=== PATIENT | male | born 1995 | race Caucasian/White ===

== ENCOUNTER 2018-08-20 08:06 | Day surgery (SDC) | payer OTHER ==
[2018-08-20] MEDS ORDERED: SCOPOLAMINE HYDROBROMIDE 1.5 MG PATCH.TD72 TD PRN (09:55)
[2018-08-20] MEDS ORDERED: ONDANSETRON HCL INJ/PF 4 MG/2 ML SDV ONE (10:00)
[2018-08-20] MEDS ORDERED: MIDAZOLAM 2 MG/2 ML INJ ONE (10:01)
[2018-08-20] MEDS ORDERED: PROPOFOL INJ 200 MG/20 ML VIAL IV ONE (10:01)
[2018-08-20] MEDS ORDERED: DEXAMETHASONE SOD PHOS INJ 10 MG/1 ML VIAL ONE (10:01)
[2018-08-20] MEDS ORDERED: FENTANYL CITRATE INJ/PF 100 MCG/2 ML AMPUL ONE (10:01)
[2018-08-20] MEDS ORDERED: ROCURONIUM BROMIDE INJ 50 MG/5 ML VIAL IV ONE (10:20)
[2018-08-20] MEDS ORDERED: CEFTRIAXONE 2 GM/D5W RTU 2 GM/50 ML RTUPB IV ONE (10:28)
[2018-08-20] MEDS: BUPIVACAINE HCL 0.5%/EPI 1:200000 INJ 1.8 ML CARTRIDGE ONE ×2 (10:33→10:37)
[2018-08-20] MEDS: OXYMETAZOLINE HCL 0.05% NASAL SPRAY 15 ML BOTTLE ONE ×2 (10:37→10:52)
[2018-08-20] MEDS: MINERAL OIL (STERILE) 10 ML VIAL ONE ×2 (10:37→10:51)
[2018-08-20] MEDS: TOBRAMYCIN SULFATE/DEXAMETH OPH OINTMENT 3.5 GM ONE ×2 (10:37→10:50)
[2018-08-20] MEDS: BACITRACIN ZINC OINTMENT 15 GM ONE ×3 (10:37→10:51)
[2018-08-20] MEDS: BALANCED SALT IRRIG SOLN COMB2 15 ML BOTTLE ONE ×2 (10:37→10:51)
[2018-08-20] MEDS ORDERED: PROMETHAZINE HCL INJ 25 MG/1 ML VIAL ONE (15:31)
[2018-08-20] MEDS ORDERED: NORMAL SALINE INJ/PF 0.9% 10 ML SDV ONE (15:32)
--- NOTE | 2018-08-21 07:15 | SURGICARE OPERATIVE REPORT E ---
[facility] Operative Report NAME: NORM MIGUEL AGE: 22Y DATE OF SURGERY: 08/20/2018 ROOM: PREOPERATIVE DIAGNOSES: 1. Nasal deformities acquired. 2. Nasal septal deviation acquired. 3. Chronic nasal dyspnea. 4. Bilateral inferior turbinate hypertrophy. POSTOPERATIVE DIAGNOSES: 1. Nasal deformities acquired. 2. Nasal septal deviation acquired. 3. Chronic nasal dyspnea. 4. Bilateral inferior turbinate hypertrophy. OPERATIONS PERFORMED: 1. Endonasal/closed reconstructive septorhinoplasty with work addressing the bony pyramid and lower cartilages with tip elevation and stabilization. 2. Bilateral inferior turbinate hypertrophy via a submucous resection technique. SURGEON: GLORIA MORRISSEY D.O. ANESTHETIC: General endotracheal tube. ANESTHESIA STAFF: Neena FREEMAN ESTIMATED BLOOD LOSS: 75 mL. FLUIDS: 1900 mL. URINE OUTPUT: 700 mL. COMPLICATIONS: None. DRAINS: None. SPONGE COUNT: Verified. NEEDLE COUNT: Verified. MATERIALS FORWARDED SPECIMEN: None. FINDINGS: 1. Caudal septum with right bowing deformity/right convexity and caudal septal margin with displacement into the left nasal vestibule along with the medial crura and medial crural foot plate on the left. 2. Nasal dorsal bony irregularities. 3. Pinched nasal valve and nasal valve collapse bilateral. 4. Bilateral inferior turbinate hypertrophy, left greater than right. 5. Large right maxillary crest spur and septal spur. 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 The patient had been referred for and he complained of a longstanding history of chronic nasal dyspnea over the years. The patient reports history of nasal trauma. The patient has desired to undergo nasal surgery to improve his functional nasal airflow. The patient denies allergy symptoms or sinus disease difficulty. The patient reports no change in nasal airflow with nasal spray/steroid use. After extensive discussion with the patient, recommendation and plan was made to proceed with a reconstructive septorhinoplasty and bilateral inferior turbinate reduction surgery. The procedures and all of their risks and complications were all discussed in detail with the patient. He voiced an understanding of the described surgical plan, agreed to proceed, and consent was obtained. PROCEDURE: The patient was taken to the main operating room and was placed on the operating room table in the supine position. Appropriate monitors were placed. Using mask and IV access, general anesthesia was induced. The patient then underwent a nasal examination with injection of local anesthetic with epinephrine. The patient had 2 Afrin-soaked neuro patties placed per nasal passage. The patient was then prepped and draped in the usual fashion for nasal surgery. There was a left hemitransfixion incision performed followed by elevation of the mucoperichondrial and mucoperiosteal flaps. There was a rent that occurred with elevation of the right mucosal flap due to the extensive right maxillary crest spur and septal spur. At this point, the bony cartilaginous junction was identified and divided with the most deviated portions of septal cartilage and bone removed. There was cartilage also harvested leaving a greater than 1.5 x 1.5 cm cartilaginous L-strut. At this point, the turbinate bipolar wand was used to make 2 passes in each inferior turbinate. The anterior portion of each turbinate was entered with a pair of Fernando scissors followed by elevation of tissue in a submucosal plane with a [place] elevator. A Bobo elevator was next used to outfracture each inferior turbinate. With use of the turbinate microdebrider system at a setting of 1500 RPM, submucous resection was performed on each side. The redundant mucosa was trimmed. Excess turbinate bone on the left was removed without difficulty. At this point, the mucosal margins were reapproximated with Chromic suture. At this point, the rhinoplasty portion of the case was addressed in the following manner. There was a precise pocket created between the medial crural footplates to reposition the caudal septal margin into. There were bilateral modified marginal incisions performed. Next, Fernando scissors were used to create precise pockets for the bilateral extended alar grafts. Dissection was carried up over the nasal dorsum in a subperiosteal plane. There was next dorsal rasp work performed to address the dorsal bony deformities. At this point, septal cartilage was used and fashioned into extended alar fat grafts, left greater than right. These were placed into the precise pockets and were then fixed in place with [id number] 5-0 Prolene and Telfa holsters to protect the nasal lining and skin. Once complete, the nose was thoroughly irrigated and suctioned and there was adequate hemostasis noted. At this point, the #15 blade scalpel was used to create relaxing incisions at the left septal cartilage to release the bowing deformity. Next, 5-0 Prolene suture was used to perform a septal mattress straightening suture. Once complete, the caudal septum was fixed to the midline at the anterior nasal spine with 5-0 Prolene suture. The height of the caudal septum in this location was also trimmed prior to fixation at the anterior nasal spine. The remaining cartilage was placed back between the mucosal flaps and banked. A 5-0 Chromic suture was used to reapproximate the right mucosal flap rent. There was soft tissue and morselized cartilage that was placed at the nasal dorsum around the upper lateral cartilages/rhinion area for contour and to assist with overall healing. At this point, all incisions were reapproximated with 5-0 Chromic suture. The 5-0 Chromic suture was also utilized to perform a septal mattress whipstitch. At this point, 1 Merocel nasal pack was placed per nasal passage and these were secured at the caudal aspect with 4-0 Prolene suture. FloSeal was also placed into each nasal passage. At this point, the nose was cleaned and dried followed by placement of Mastisol and Steri-Strips. The patient was then returned to the anesthesia staff and was allowed to emerge from general anesthesia. The patient was extubated in the main operating room and was then transported to the post-anesthesia recovery unit in stable condition. There were no complications. DICTATING PHYSICIAN: GLORIA MORRISSEY D.O. [id number] PHY#: [id number] ID: [id number] JOB#: [id number] ACCT: [id number] cc:GLORIA MORRISSEY D.O. >
== END 2018-08-20 16:15 | disposition home or self-care (01) ==
LOC: SC 08:06
PROVIDERS: ATTEND Otolaryngology
DX: J34.2 Deviated nasal septum (principal); M95.0 Acquired deformity of nose; J34.3 Hypertrophy of nasal turbinates; R06.09 Other forms of dyspnea
CPT/HCPCS: 30420; 30140; J2250; J3490 ×7; J3010; J2550; J2405; J2704; J1100; J0696; 160

== ENCOUNTER → 2018-10-17 | Outpatient (CLI) | payer OTHER | LOC: OD 12:11 | PROVIDERS: ATTEND Otolaryngology | DX: J34.3 Hypertrophy of nasal turbinates (principal) | CPT/HCPCS: 36415; 82785; 86003 ==